=== PATIENT | male | born 1955 | race Caucasian/White ===

== ENCOUNTER 2017-09-15 09:05 | Day surgery (SDC) | payer OTHER ==
[~2017-09-15] VITALS: Ht 185.4 cm; Wt 96.6 kg
[~2017-09-15 09:05] MED LIST: ASPIR-LOW81 MG PO; LEVAQUIN750 MG; LOSARTAN-HCTZ1 EAC1 PO; NORCO 7.5-3251 EACH PO; OMEPRAZOLE20 MG PO
--- NOTE | 2017-09-15 11:25 | NUR ---
WAITING PATIENTLY, HAS BEEN UPDATED AT 10 AND 1120. IV PATENT. DENIES ANY NEEDS.
--- NOTE | 2017-09-15 14:07 | NUR ---
[facility]17 [facility] PAC[facility] AWAKE WITH NO C/O'S.
[2017-09-15] MEDS ORDERED: KEFLEX500 MG PO (15:02)
[2017-09-15] MEDS ORDERED: PERCOCET 5-3251 EACH PO (15:02)
--- NOTE | 2017-09-15 17:13 | NUR ---
L E DURING POST OP PT AMB WELL. ATE 2 PUDDINGS VOIDS 200MLS YELLOW URINE. RATES PAIN ON DC AT 0/10,DENIES ANY NAUSEA.
--- NOTE | 2017-09-17 05:19 | OR ---
[facility] [address] [facility] [place] [address] Signed DATE OF OPERATION: 09/15/2017 SURGEON: Maribell Sanchez MD PREOPERATIVE DIAGNOSIS: Left hydrocele. POSTOPERATIVE DIAGNOSIS: Left hydrocele. NAME OF PROCEDURE: Left hydrocelectomy. ANESTHESIA: General. ESTIMATED BLOOD LOSS: 5 mL. COMPLICATIONS: None. SPECIMENS: Left hydrocele sac sent to Pathology for evaluation. DRAINS: None. INDICATIONS FOR PROCEDURE: Mr. Anders is a very pleasant 62-year-old gentleman, who recently presented to my clinic with complaints of left testicular swelling and enlargement. He reportedly has been experiencing progressive enlargement of his left hemiscrotum for years. He voiced interest to have his left hydrocele surgically corrected. After examination of the genitalia, I was able to confirm the presence of a left hydrocele. After discussion of the risks and benefits of the procedure, which do include hematoma, infection, and damage to the testicular structures, the patient elected to undergo left hydrocelectomy. OPERATIVE FINDINGS: 1. Examination of the external genitalia reveals a normal circumcised phallus with a glanular meatus. The testicles are descended bilaterally and are without any palpable Electronically Signed By: MARIBELL SANCHEZ MD 09/17/17 0519 PATIENT NAME: NIEVES ANDERS OPERATIVE REPORT DATE OF : 53 REPORT #: [id number] PHYSICIAN: MARIBELL SANCHEZ MD PCP: Eleni FERRARA MD REPORT IS CONFIDENTIAL AND NOT TO BE RELEASED WITHOUT AUTHORIZATION [facility] [address] [facility] [place], [place] [address] Signed masses. I am unable to easily palpate the left testicle due to the presence of the hydrocele. There is a moderate amount of swelling and enlargement associated with the left hemiscrotum, which is consistent with a left-sided hydrocele. 2. The patient's moderately sized left hydrocele was corrected using the Jaboulay technique without complication. 3. A portion of the left hydrocele sac was sent to Pathology for evaluation. No drains were placed. DESCRIPTION OF PROCEDURE: After informed consent was obtained, the patient was taken back to the operating room. [facility] was [facility] to the operating room table, where general anesthesia was induced. He was placed in the supine position and his genitalia were prepped and draped in the standard sterile fashion. A marker was used to cristela the median raphae, and then an approximately 3.5 cm transverse incision was made in the left hemiscrotum. This was dissected down through the dartos fascia to the level of the tunica vaginalis. After using sharp dissection, I then bluntly dissected the dartos fascia from around the tunic vaginalis. The left testicle was then delivered from the left hemiscrotum with the hydrocele sac fully intact. I removed all of the residual paratesticular tissue using mostly electrocautery and manual retraction. Once the hydrocele sac was clearly visible, I placed 2 Allis clamps in the sac and then incised the sac to allow drainage of approximately 250 mL of straw-colored fluid. A portion of the hydrocele sac was then excised and then sent to Pathology for evaluation. I wrapped the sac around the spermatic cord posteriorly, as is the case with a Jaboulay technique. The ends of the sac were then joined and closed in a continuous running fashion using 3-0 Vicryl suture. All the while hemostasis was achieved and maintained with judicious use of electrocautery. I placed the left testicle back into the left hemiscrotum in the appropriate orientation. I evaluated the dartos layer of the left hemiscrotum to be sure there were no residual bleeders. The area was then irrigated with sterile solution. The dartos fascia was then closed in a continuous running fashion using 3-0 Vicryl suture. The superficial skin of the scrotum was closed in a simple interrupted fashion using 3-0 Vicryl. The area was cleaned and dried and then bacitracin was applied, along with scrotal fluffs. A scrotal support was then placed. The procedure was then terminated. The patient tolerated the procedure well without any complication. He will now be transferred to the postanesthesia care unit in stable condition. DISPOSITION: I discussed the details of today's procedure with both the patient and his and answered all of their questions. He will be sent home with Percocet 5/325 dispensed #30 as needed for pain, along with Keflex 500 mg p.o. b.i.d. for a total of 7 days. He will be scheduled to return to clinic in approximately 2 weeks for his first postoperative evaluation. Electronically Signed By: MARIBELL SANCHEZ MD 09/17/17 0519 PATIENT NAME: NIEVES ANDERS OPERATIVE REPORT DATE OF : 53 REPORT #: [id number] PHYSICIAN: MARIBELL SANCHEZ MD PCP: Eleni FERRARA MD REPORT IS CONFIDENTIAL AND NOT TO BE RELEASED WITHOUT AUTHORIZATION [address] [address] Signed MD RYAN Hampton/MODL /[id number] Copies: ~ Electronically Signed By: MARIBELL SANCHEZ MD 09/17/17 0519 PATIENT NAME: NIEVES ANDERS MADYSON OPERATIVE REPORT DATE OF : 53 REPORT #: [id number] PHYSICIAN: MARIBELL SANCHEZ MD PCP: Eleni FERRARA MD REPORT IS CONFIDENTIAL AND NOT TO BE RELEASED WITHOUT AUTHORIZATION
== END 2017-09-15 15:55 | disposition home or self-care (01) ==
LOC: DS 09:05 → OPS 09:05
PROVIDERS: Urology
PROC: 0VB70ZZ Excision of Left Tunica Vaginalis, Open Approach (ICD-10-PCS; principal; 2017-09-15 09:45)
DX: N43.3 Hydrocele, unspecified (principal); I10 Essential (primary) hypertension; K21.9 Gastro-esophageal reflux disease without esophagitis; M51.87 Other intervertebral disc disorders, lumbosacral region; K76.0 Fatty (change of) liver, not elsewhere classified; Z90.89 Acquired absence of other organs; Z98.890 Other specified postprocedural states; Z79.82 Long term (current) use of aspirin; Z79.899 Other long term (current) drug therapy
CPT/HCPCS: 00920; J0696; J2405; J2704; J2765; J3010; J7120

== ENCOUNTER 2022-08-28 21:59 | Emergency (ER) | payer MEDICARE, OTHER ==
[~2022-08-28] VITALS: Ht 185.4 cm; Wt 98.7 kg
[~2022-08-28 21:59] MED LIST changes: +CO Q-10200 MG PO; +COZAAR100 MG PO; +FLOMAX0.4 MG PO; +INDAPAMIDE1.25 MG PO; +KEFLEX500 MG PO; +PERCOCET 5-3251 EACH PO; +PULMICORT0.5 MG/2 M INH; +TURMERIC500 M2 PO; +VENTOLIN HFA18 GM
[2022-08-29] MEDS ORDERED: TAMSULOSIN HCL0.4 MG PO (00:05)
[2022-08-29] MEDS ORDERED: DOXYCYCLINE MO100 M1 PO (00:05)
[2022-08-29] MEDS ORDERED: PENICILLIN V P500 MG PO (01:16)
== END 2022-08-29 01:30 | disposition home or self-care (01) ==
LOC: ED 21:59
DX: S01.511A Laceration without foreign body of lip, initial encounter (principal); S01.81XA Laceration without foreign body of other part of head, initial encounter; I10 Essential (primary) hypertension; K21.9 Gastro-esophageal reflux disease without esophagitis; Z23 Encounter for immunization; Z79.899 Other long term (current) drug therapy; Y04.2XXA Assault by strike against or bumped into by another person, initial encounter
CPT/HCPCS: 12052; 90471; 90715; 99283-25

== ENCOUNTER 2025-03-09 06:30 | Day surgery (SDC) | payer MEDICARE, OTHER ==
[~2025-03-09] VITALS: Ht 185.4 cm; Wt 102.0 kg
[~2025-03-09 06:30] MED LIST changes: +DOXYCYCLINE MO100 M1 PO; +LACTATED RINGER'S 1,000 ML IV SCH; +PENICILLIN V P500 MG PO; +TAMSULOSIN HCL0.4 MG PO; -VENTOLIN HFA18 GM; +VENTOLIN HFA18 GM INH
[2025-03-09 06:42] VITALS: BP 143/88
[2025-03-09] MEDS ORDERED: LIDOCAINE HCL 1% 5 ML SDV INJ ONE (07:00)
[2025-03-09] MEDS ORDERED: IBLOOD GLUCOSE TEST STRIP 1 EA TEST VI PRN (07:00)
[2025-03-09] MEDS ORDERED: LIDOCAINE HCL 2% 5 ML SDV ONE (07:09)
--- NOTE | 2025-03-09 08:18 | NUR ---
03/09/25 0818 Camille Chaparro 0871-PATIENT ARRIVED TO PACU ON 6L MASK NONAROUSABLE RR EVEN. IVF INFUSING. SR HR 70'S. ABDOMEN SOFT. LAYING LEFT LATERAL
[2025-03-09 08:53] VITALS: BP 131/75
--- NOTE | 2025-03-10 17:08 | PATH ---
[facility] [address] [place], [place] [address] Signed SPECIMEN(S): A COLON POLYP AT 20 CM SPECIMEN(S): B COLON POLYP AT 22 CM SPECIMEN(S): C COLON POLYP AT 19 CM SPECIMEN SOURCE: A. COLON POLYP AT 20 CM B. COLON POLYP AT 22 CM C. COLON POLYP AT 19 CM CLINICAL HISTORY: History of colon polyps A-C) polyp FINAL PATHOLOGIC DIAGNOSIS: A. Colon polyp at 20 cm: - Tubular adenoma. - Negative for high-grade dysplasia or malignancy. B. Colon polyp at 22 cm: - Tubular adenoma. - Negative for high-grade dysplasia or malignancy. C. Colon polyp at 19 cm: - Tubular adenoma. - Negative for high-grade dysplasia or malignancy. [facility] MICROSCOPIC EXAMINATION: Histologic sections of all submitted blocks are examined by light microscopy. These findings, together with the gross examination, support the pathologic diagnosis. Histologic sections of all submitted blocks are examined by light microscopy. These findings, together with the gross examination, support the pathologic diagnosis. GROSS DESCRIPTION: A. The specimen, labeled and designated "Chago, colon polyp at 20 cm," is received in formalin and consists of one garcia soft tissue fragment, 0.2 cm. Entirely submitted in (A1). B. The specimen, labeled and designated "Maulikberg, colon polyp at 22 cm," is received in formalin and consists of one garcia soft tissue fragment, 0.3 cm. Entirely submitted in (B1). C. The specimen, labeled and designated "Schulberg, colon polyp at 19 cm," is PATIENT NAME: NIEVES DALTON PATHOLOGY DATE OF : 53 REPORT #: [id number] PHYSICIAN: TAMANNA PATHOLOGY PCP: JUAN CANDELARIO MD REPORT IS CONFIDENTIAL AND NOT TO BE RELEASED WITHOUT AUTHORIZATION [facility] [address] [place], [place] [address] Signed received in formalin and consists of one garcia soft tissue fragment, 0.3 cm. Entirely submitted in (C1). AB (under the direct supervision of a pathologist) The Gross Description was prepared using a voice recognition system. The report was reviewed for accuracy; however, sound-alike word errors, addition and/or deletions may occur. If there is any question about this report, please contact Client Services. ADDITIONAL NOTES: Immunohistochemical and/or in situ hybridization studies if performed in this case included appropriate positive controls that reacted as expected. This test was developed and its performance characteristics determined by [facility]. It has not been cleared or approved by the U.S. Food and Drug Administration. The FDA has determined that such clearance or approval is not necessary. This test is used for clinical purposes. It should not be regarded as investigational or for research. [facility] is certified under the Clinical Laboratory Improvement Amendments of 1988 (CLIA) as qualified to perform high complexity clinical laboratory testing. PERFORMING LABORATORY: Technical component was performed by [facility], [address] [place] [id number] (CLIA# [id number]). Professional interpretation was performed by [facility], [address] [place] [id number] (CLIA#: [id number]). Diagnostician: Jeet Alves MD Pathologist Electronically Signed 03/10/2025 Copies: ~ PATIENT NAME: NIEVES DALTON MADYSON PATHOLOGY DATE OF : 53 REPORT #: [id number] PHYSICIAN: TAMANNA PATHOLOGY PCP: JUAN CANDELARIO MD REPORT IS CONFIDENTIAL AND NOT TO BE RELEASED WITHOUT AUTHORIZATION
== END 2025-03-09 09:00 | disposition home or self-care (01) ==
LOC: DS 06:30 → OPS 06:30 → DS 08:40 → OPS 09:00 → DS 10:10 → OPS 10:10 → DS 10:15
PROVIDERS: ATTEND Surgery
PROC: 0DBN8ZX Excision of Sigmoid Colon, Via Natural or Artificial Opening Endoscopic, Diagnostic (ICD-10-PCS; principal; 2025-03-09 08:40)
DX: Z12.11 Encounter for screening for malignant neoplasm of colon (principal); D12.5 Benign neoplasm of sigmoid colon; K57.30 Diverticulosis of large intestine without perforation or abscess without bleeding; D86.89 Sarcoidosis of other sites; I10 Essential (primary) hypertension; N40.0 Benign prostatic hyperplasia without lower urinary tract symptoms; G47.33 Obstructive sleep apnea (adult) (pediatric); Z86.0101 Personal history of adenomatous and serrated colon polyps; Z79.899 Other long term (current) drug therapy
CPT/HCPCS: 00812; 88305; J2003; J2704; J7121

== ENCOUNTER 2025-03-27 21:17 | Emergency (ER) | payer MEDICARE, OTHER ==
[~2025-03-27] VITALS: Ht 185.4 cm; Wt 103.4 kg
[~2025-03-27 21:17] MED LIST changes: -LACTATED RINGER'S 1,000 ML IV SCH
[2025-03-27] MEDS ORDERED: LIDOCAINE HCL 4% 50 ML BTL TOP ONE (23:00)
[2025-03-28 00:22] VITALS: BP 137/76
== END 2025-03-28 00:23 | disposition home or self-care (01) ==
LOC: ED 21:17
DX: S02.2XXA Fracture of nasal bones, initial encounter for closed fracture (principal); S01.21XA Laceration without foreign body of nose, initial encounter; S41.112A Laceration without foreign body of left upper arm, initial encounter; I10 Essential (primary) hypertension; K21.9 Gastro-esophageal reflux disease without esophagitis; Z79.899 Other long term (current) drug therapy; W10.9XXA Fall (on) (from) unspecified stairs and steps, initial encounter
CPT/HCPCS: 12011; 70450; 70486; 72125; 99283-25